=== PATIENT | male | born 1950 | race Caucasian/White ===

== ENCOUNTER → 2021-05-28 12:31 | Outpatient (REF) | payer MEDICAID, OTHER, SELFPAY ==
--- NOTE | 2021-05-28 13:00 | CA_ITS ---
Transthoracic Echocardiogram Patient (Last, First, Middle): Kaden Butcher, Gender: Male Date of : 1950 Age: 71 Procedure Date: 05/28/2021 Procedure Type: Transthoracic Echocardiogram Location: OP Height: 172.72 cm Weight: 90.72 kg BSA: 2.04 m2 Heart Rate: bpm BP: 180 / 70 mmHg Seaman Officer: QUIANA/[email or web address] Referring MD: Gracie Blunt [employer]: Maximino Goode MD Symptoms: I50.22 CHF, CHEST PAIN Study Quality: Good ECG Rhythm: Sinus Conclusions: - 1. Normal LV systolic function with impaired relaxation filling pattern with regional wall motion abnormality in inferior inferoseptal basal segments 2. Normal cardiac valvular Doppler 3. Normal RV systolic pressure 4. No pericardial effusion Findings Left Ventricle Normal left ventricular size, thickness, and systolic function. The visually estimated ejection fraction is between 55-60%. Spectral Doppler is indicative of an impaired relaxation filling pattern. E/E prime ratio is between 8 and 15 consistent with indeterminate filling pressures. Wall Motion Rest Echo Findings The mid inferior segment is hypokinetic. The basal inferior and basal inferoseptal segments are akinetic. All other scored wall segments showed normal motion. Right Ventricle Normal right ventricular cavity size and systolic function. Atria Both atria are normal in size. There is no evidence of interatrial shunt. Aortic Valve The aortic valve structure and function is likely normal. There is no aortic valve stenosis. There is no aortic valve regurgitation. Mitral Valve Likely normal mitral valve structure and function. There is trace mitral valve regurgitation. There is no mitral valve stenosis. Pulmonic Valve The pulmonic valve was not well visualized. Tricuspid Valve Likely normal tricuspid valve structure and function. There is trace tricuspid valve regurgitation. The right ventricular systolic pressure is normal. The right ventricular systolic pressure is 24 mmHg. Normal right atrial pressure. There is no evidence of pulmonary hypertension. Great Vessels All visible segments of the aorta are normal in size. The pulmonary artery was not well visualized. Venous The inferior vena cava is normal in size and collapses greater than 50% with inspiration. Pericardium/Pleural There is no evidence of pericardial effusion. Prior Study Comparison No prior study available for comparison. Measurements 2D Linear Measurements IVSd: 0.88 0.6-0.9/0.6-1.0 cm LVIDd: 5.21 3.9-5.3/4.2-5.9 cm LVIDd Index: 2.55 2.4-3.2/2.2-3.1 cm/m2 LVIDs: 3.67 2.0-3.6 cm LVPWd: 0.89 0.7-1.1 cm Ao Root: 3.40 2.1-3.5 cm LA Diam: 2.90 2.7-3.8/3.0-4.0 cm LAIDs Index: 1.42 1.5-2.3 cm/m2 LV Mass: 206.59 67-162/88-224 g LV Mass Index: 101.27 43-95/49-115 g/m2 LVOT Diam: 2.10 3.0+(-)1.3 cm 2D Systolic Function EF 4C: 59.60 >55% EF 2C: 50.50 >55% EF BiP: 52.80 >55% Mitral Valve MV Pk E: 0.80 MV PK A: 1.25 MV Decel Time: 224.00 E/A: 0.60 E'Lateral: 7.07 E'Medial: 5.00 E/E' Med: 16.00 E/E' Lat: 11.30 PHT: 66.00 MVA PHT: 3.33 Decel [place]: 3.58 Aortic Valve AoV Pk Julian: 1.52 AoV Mn Julian: 1.12 AoV VTI: 0.36 AoV Pk Grad: 9.00 Aov Mn Grad: 6.00 LEXI Cont.VTI: 1.94 LVOT LVOT Pk Julian: 0.91 LVOT Mn Julian: 0.63 LVOT VTI: 0.20 LVOT Pk Grad: 3.00 LVOT Mn Grad: 2.00 LVOT Diam: 2.10 LVOT Area: 3.46 Diastolic Function MV Pk E: 0.80 MV Pk A: 1.25 E/A: 0.60 E'Medial: 5.00 E/E' Med: 16.00 E' Laterial: 7.07 E/E' Lat: 11.30 Tricuspid Valve TR Pk Julian: 2.31 TR Pk Grad: 21.00 RA Press: 3.00 RVSP: 24.00 Great Vessels Aorta Ao Root-2D: 3.40 2.0-3.7 cm Ao Asc: 2.80 2.1-3.4 cm Ao Arch: 2.40 Updated in Other Vendor System with Status of Final Maximino Goode MD electronically signed on 05/30/2021 11:07:27 AM with status of Final
== END ==
LOC: HO.CARD 12:31
PROVIDERS: Visit Provider Nurse Practitioner Family
DX: I50.22 Chronic systolic (congestive) heart failure (principal)
CPT/HCPCS: 93306

== ENCOUNTER 2024-01-30 11:56 | Outpatient (REF) | payer MEDICAID, OTHER, SELFPAY ==
--- NOTE | ~2024-01-30 | XR_ITS ---
EXAMINATION: XR CHEST CLINICAL INFORMATION: Weight loss. History of nodules. COMPARISON: December 20, 2014. TECHNIQUE: 2 views of the chest were obtained. FINDINGS: No acute infiltrate, effusion, pneumothorax is seen. 5 mm right basilar calcified granuloma, unchanged compared with 9 years prior. No suspicious lung nodule identified. Bilateral nipple shadows on frontal view. No adenopathy identified. The heart appears normal in size. The aorta is mildly atherosclerotic. Mild degenerative changes of the spine. XR/XR chest 2V IMPRESSION: No acute finding.
== END 2024-01-30 11:57 | disposition home or self-care (01) ==
LOC: HO.HHCX 11:56
PROVIDERS: Visit Provider Student in an Organized Health Care Education/Training Program
DX: R63.4 Abnormal weight loss (principal)
CPT/HCPCS: 71046

== ENCOUNTER 2024-03-12 10:11 | Outpatient (REF) | payer MEDICAID, OTHER, SELFPAY ==
[2024-03-12 11:40] LABS: Basophils Absolute Auto 0.1 X10*3/uL (0.0-0.2); Basophils Percent Auto 0.9 % (0-2); Eosinophils Absolute Auto 0.2 X10*3/uL (0.0-0.4); Eosinophils Percent Auto 3.2 % (0-4); Hematocrit 42.1 % (42.0-52.0); Hemoglobin 14.6 g/dl (14.0-18.0); Imm Gran Abs Auto 0.02 X10*3/uL (0.00-0.03); Imm Gran Pct Auto 0.4 % (0.0-0.4); Lymphocytes Absolute Auto 1.9 X10*3/uL (1.2-4.9); Lymphocytes Percent Auto 35.1 % (20-40); MANUAL DIFF FLAG NO; Mean Corpuscular HGB Conc 34.7 g/dl (31.0-36.0); Mean Corpuscular Hemoglobin 31.4 pg (27.0-33.0); Mean Corpuscular Volume 90.5 fL (80.0-98.0); Monocytes Absolute Auto 0.4 X10*3/uL (0.1-1.2); Neutrophils Absolute Auto 2.8 x10*3/uL (2.0-8.3); Neutrophils Percent Auto 52.4 % (45-73); Platelet Count 286 X10*3/uL (160-400); Red Blood Count 4.65 X10*6/uL (4.60-5.80); Red Cell Distribution Width 13.8 % (11.0-16.0); White Blood Count 5.4 X10*3/uL (4.8-10.8)
[2024-03-12 11:54] LABS: Estimated Average Glucose 105 mg/dL; Hemoglobin A1c % 5.3 % (<6.0)
[2024-03-12 12:29] LABS: Alanine Aminotransferase 13 U/L (0-40); Albumin Level 3.9 g/dL (3.5-5.0); Alkaline Phosphatase 55 U/L (39-117); Anion Gap 12 (12-20); Aspartate Amino Transferase 15 U/L (5-37); Blood Urea Nitrogen 22 mg/dL (9-16); Carbon Dioxide 29 mmol/L (22-29); Chloride 102 mmol/L (96-108); Cholesterol 250 mg/dL (<200); Estimated Glomerular Filt Rate > 60; Glucose Random 118 mg/dL (60-115); HDL Cholesterol 41 mg/dL (>40); LDL Cholesterol Calculated 158 mg/dL (<100); Potassium 4.2 mmol/L (3.3-5.1); Sodium 139 mmol/L (135-145); Triglycerides 256 mg/dL (<150)
[2024-03-12 12:35] LABS: Creatinine Urine 163.25 mg/dL; Microalbum/Creatinine Ratio Ur 41.6 ug/mg cr (<30)
[2024-03-12 12:45] LABS: TSH reflex Free T4 2.69 uIU/mL (0.32-4.0)
[2024-03-12 12:49] LABS: Folate 8.5 ng/mL (> or = 4.0); Vitamin B12 296 pg/mL (200-900)
[2024-03-12 13:05] LABS: CT PCR NOT DETECTED (Not Detect.); NG PCR NOT DETECTED (Not Detect.)
[2024-03-13 03:17] LABS: Syphilis Screen Nonreactive (Nonreactive)
[2024-03-13 03:37] LABS: HBS Num1 0.09 mIU/mL (0-7.99); HBc Num1 0.11 S/CO (0.00-0.79); HBsAGNum1 0.23 S/CO (0.00-0.99); HIV AB/AG Nonreactive (Nonreactive); HIV Num 1 0.04 S/CO (0.00-0.99); Hepatitis B Core Antibody Nonreactive (Nonreactive); Hepatitis B Surface Antigen Negative (Negative); ~HepC Num1 0.45 S/CO (0.00-0.79); ~Hepatitis B Surface Antibody NONREACTIVE (Nonreactive); ~Hepatitis C Antibody Nonreactive (Nonreactive)
[2024-03-15 12:33] LABS: Free Prostate Spec Ag 0.6 ng/mL; Percent Free Prostate Spec Ag 12 % (calc) (>25)
[2024-03-16 16:13] LABS: VITAMIN D (1,25 OH) D3 51 pg/mL; Vit D (1,25-Dihydroxy) Total 51 pg/mL (18-72); Vitamin D (1,25 OH) D2 <8 pg/mL
== END 2024-03-12 10:12 | disposition home or self-care (01) ==
LOC: HO.HHCL 10:11
PROVIDERS: Visit Provider Student in an Organized Health Care Education/Training Program
DX: Z00.00 Encounter for general adult medical examination without abnormal findings (principal)
CPT/HCPCS: 0353U; 80053; 80061; 82043; 82570; 82607; 82652; 82746; 83036; 84154; 84443; 85025; 86704; 86706; 86780; 86803; 87340; 87389

== ENCOUNTER 2024-04-08 16:26 | Outpatient (REF) | payer MEDICAID, OTHER, SELFPAY ==
--- NOTE | ~2024-04-08 | CT_ITS ---
EXAMINATION: CT HEAD WITHOUT CONTRAST CLINICAL INFORMATION: contusion of lt eyelid and periocular area COMPARISON: None. TECHNIQUE: Contiguous axial imaging was performed from the skull base to vertex without intravenous administration of contrast. Coronal and sagittal reformatted images are performed at the CT scanner. [This CT examination was performed using dose optimization techniques as appropriate, variously including the following: *Automated exposure control *Adjustment of mA and/or kV according to patient size (this includes techniques or standardized protocols for targeted exams where dose is matched to indication/reason for exam; i.e. extremities or head) *Use of iterative reconstruction technique] DLP: 870 mGy-cm. FINDINGS: There is no evidence of acute intracranial hemorrhage or territorial infarction. No abnormal mass-effect or midline shift is seen. Christopher to white matter differentiation is well preserved. No extra-axial fluid collections are identified. There is generalized global volume loss. There is moderate prominence of the ventricles and the sulci . There is mild hypodensity of the periventricular white matter due to chronic small vessel ischemic disease. There is no osseous abnormality. The mastoid air cells and visualized portions of the paranasal sinuses are well-aerated. CT/CT head/brain wo IV con IMPRESSION: No acute intracranial pathology.
== END 2024-04-08 16:27 | disposition home or self-care (01) ==
LOC: HO.CT 16:26
PROVIDERS: PCP Student in an Organized Health Care Education/Training Program; Visit Provider Student in an Organized Health Care Education/Training Program
DX: S00.12XA Contusion of left eyelid and periocular area, initial encounter (principal)
CPT/HCPCS: 70450